=== PATIENT | female | born 1960 | race American Indian/Alaskan Native ===

== ENCOUNTER 2016-10-20 16:08 | Outpatient (CLI) | payer MEDICAID ==
--- NOTE | 2016-10-23 14:19 | Magnetic Resonance Report ---
MRI LUMBAR SPINE WITHOUT CONTRAST HISTORY: Low back pain. TECHNIQUE: axial T1, T2. sagittal T1,T2, STIR. COMPARISON: none. FINDINGS: The conus terminates at L1. No signal abnormality or mass. The cauda equina is within normal limits. Normal height and alignment of the lumbar vertebra. The facet joints are in appropriate relationship. Marrow replacement changes are noted from T11-L4. There is no evidence for fracture, subluxation or suspicious bone lesion. Mild diffuse disc desiccation and narrowing and mild facet arthropathy are noted. The paraspinal soft tissues are unremarkable. L1-2: No significant abnormality. L2-3: No significant abnormality. L3-4: A mild posterior bulging disc is identified. Moderate facet arthropathy and moderate hypertrophy of ligamentum flavum. There is borderline to mild central canal narrowing measuring 9 mm in AP dimension. Right neural foraminal narrowing is estimated at 50-75%. L4-5: A moderate posterior bulging disc is identified. Moderate facet hypertrophy and moderate hypertrophy of ligamentum flavum. This results in mild to moderate central canal stenosis measuring 8 mm in AP dimension. Bilateral neural foraminal narrowing is estimated at 25-50%. L5-S1: The disc space and facet joints appear to be fused. There is no evidence for central canal narrowing or neural foraminal narrowing. IMPRESSION: Lumbar spondylosis as outlined above. L4-5 appears to be the most affected level. No acute process appreciated.
== END 2016-10-20 16:09 | disposition home or self-care (01) ==
LOC: MRI 16:08
PROVIDERS: ATTEND Physical Medicine & Rehabilitation
DX: M51.17 Intervertebral disc disorders with radiculopathy, lumbosacral region (principal)
CPT/HCPCS: 72148

== ENCOUNTER 2017-03-19 17:20 | Emergency (ER) | payer MEDICAID ==
--- NOTE | 2017-03-19 17:48 | Emergency Department Report ---
Stated Complaint: JUDI Time Seen by Provider: 03/19/17 17:42 - HPI History of Present Illness: PT states she has been taking care of her mama and she has not been taking care of herself. PT c/o feeling sick for a week. PT states her heart has been racing for 5 days. - ROS Review of Systems: + cough + hoarse voice + chest pain - Exam Physical Exam: pt alert, dry heaving in triage + cough noted MSE screening note: Focused history and physical exam performed. Due to findings the following was ordered: ekg, labs, xr ED Disposition for MSE Condition: Stable
[2017-03-19] MEDS ORDERED: ZOFRAN ODT PO ONE (17:53)
[2017-03-19 18:24] LABS: Hematocrit 35.5 % (30.3-42.9); Hemoglobin 12.2 gm/dl (10.1-14.3); Mean Corpuscular HGB Conc 34 % (30-34); Mean Corpuscular Hemoglobin 34 pg (28-32); Mean Corpuscular Volume 97 fl (79-97); Platelet Count 109 K/mm3 (140-440); Red Blood Count 3.65 M/mm3 (3.65-5.03); Red Cell Distribution Width 13.6 % (13.2-15.2); White Blood Count 8.5 K/mm3 (4.5-11.0)
[2017-03-19 18:32] LABS: INR 1.06 (0.87-1.13)
[2017-03-19 18:34] LABS: Alanine Aminotransferase 21 units/L (7-56); Albumin 4.2 g/dL (3.9-5); Albumin/Globulin Ratio 1.1 %; Alkaline Phosphatase 72 units/L (35-129); Anion Gap 18 mmol/L; Blood Urea Nitrogen 12 mg/dL (7-17); Calcium 9.4 mg/dL (8.4-10.2); Carbon Dioxide 26 mmol/L (22-30); Chloride 98.1 mmol/L (98-107); Glucose 116 mg/dL (65-100); Potassium 3.9 mmol/L (3.6-5.0); Sodium 138 mmol/L (137-145); Total Protein 7.9 g/dL (6.3-8.2)
[2017-03-19 19:14] LABS: Basophils % (Manual) 0 % (0.0-1.8); Blastocytes % (Manual) 0 %; Diff Status Complete; Eosinophils % (Manual) 0 % (0.0-4.3); Hypochromasia 1+; Ovalocytes Few; Platelet Estimate Consistent w Auto
[2017-03-19] MEDS ORDERED: PROVENTIL IH ONE (23:51)
[2017-03-19] MEDS ORDERED: ATROVENT IH ONE (23:53)
[2017-03-20] MEDS ORDERED: ZOFRAN ONE (00:30)
[2017-03-20] MEDS: ROBITUSSIN AC PO ONE ×2 (00:33→00:57)
[2017-03-20] MEDS ORDERED: ZOFRAN IV ONE (00:37)
--- NOTE | 2017-03-20 02:04 | Emergency Department Report ---
HPI - General Chief Complaint: Dyspnea/Respdistress Time Seen by Provider: 03/19/17 17:42 - HPI HPI: 56-year-old female presents to emergency department by EMS from home with complaint of some shortness of breath, wheezing, mixed dry and productive cough and some palpitations for the past 5-6 days. The past 2 days she has had some generalized chest tightness. She also had one episode of nausea and vomiting today. She received an albuterol treatment in route without much relief. She has a past medical history of hypertension, sciatica, glaucoma and hypothyroidism. She is a tobacco smoker but denies any illicit drug use. She did not take anything for her symptoms prior to presentation. Patient is also having a high level of stress at this point as her mother is currently in the hospital for pneumonia. ED Past Medical Hx - Past Medical History Hx Hypertension: Yes Hx Arthritis: Yes Additional medical history: hypothyroid,BILATERAL GLAUCOMA - Surgical History Past Surgical History?: No - Social History Smoking Status: Current Every Day Smoker Substance Use Type: None - Medications Home Medications: Home Medications Medication Instructions Recorded Confirmed Last Taken Type Hydrochlorothiazide [HCTZ] 12.5 mg PO DAILY 10/06/13 03/19/17 03/19/17 History Levothyroxine [Synthroid] 50 mcg PO DAILY 10/06/13 03/19/17 03/19/17 History Losartan [Cozaar] 25 mg PO DAILY 10/06/13 03/19/17 03/19/17 History Ibuprofen [Motrin 800 MG tab] 800 mg PO Q8HR PRN #60 tablet 02/07/15 03/19/17 Rx Acetaminophen/Codeine [Tylenol #3] 1 tab PO TID #15 tablet 02/19/15 03/19/17 Unknown Rx Baclofen [Lioresal] 10 mg PO TID #15 tab 02/19/15 03/19/17 03/19/17 Rx oxyCODONE /ACETAMINOPHEN [Percocet 1 tab PO Q6HR PRN #20 tablet 11/16/1503/19/17 Rx 5/325] ALBUTEROL Inhaler [ProAir HFA 2 puff IH QID PRN #1 inhalation 03/20/17 Unknown Rx Inhaler] Benzonatate [Tessalon Perles] 100 mg PO Q8HR PRN #20 capsule 03/20/17 Unknown Rx predniSONE [Deltasone] 20 mg PO QDAY #5 tab 03/20/17 Unknown Rx ED Review of Systems ROS: Stated complaint: JUDI Other details as noted in HPI Comment: All other systems reviewed and negative Constitutional: denies: chills, fever Eyes: denies: eye pain, eye discharge, vision change ENT: denies: ear pain, throat pain Respiratory: cough, shortness of breath, wheezing Cardiovascular: chest pain. denies: palpitations Gastrointestinal: nausea, vomiting. denies: abdominal pain Genitourinary: denies: urgency, dysuria, discharge Musculoskeletal: denies: back pain, joint swelling, arthralgia Skin: denies: rash, lesions Neurological: denies: headache, weakness, paresthesias Physical Exam - Physical Exam Vital Signs: Vital Signs 03/19/17 03/19/17 03/19/17 17:45 22:35 22:36 Temperature 98.4 F Pulse Rate 58 L Pulse Rate [ Bilateral Throughout] Respiratory 22 Rate Respiratory Rate [Bilateral Throughout] Blood Pressure 176/83 O2 Sat by Pulse 95 100 100 Oximetry 03/19/17 03/19/17 03/19/17 22:38 22:40 22:42 Temperature Pulse Rate 51 L 57 L 46 L Pulse Rate [ Bilateral Throughout] Respiratory 11 L 12 12 Rate Respiratory Rate [Bilateral Throughout] Blood Pressure 171/83 171/83 O2 Sat by Pulse 100 98 100 Oximetry 03/19/17 03/20/17 22:44 00:59 Temperature Pulse Rate Pulse Rate [ 91 H Bilateral Throughout] Respiratory 18 Rate Respiratory 20 Rate [Bilateral Throughout] Blood Pressure O2 Sat by Pulse 100 Oximetry Physical Exam: GENERAL: The patient is well-developed well-nourished. HENT: Normocephalic. Atraumatic. Patient has moist mucous membranes. EYES: Extraocular motions are intact. Pupils equal reactive to light bilaterally. NECK: Supple. Trachea is midline. CHEST/LUNGS: There is some mild wheezing throughout the chest. A dry sounding cough heard with some coughing fits. There is no tachypnea or accessory muscle use. No respiratory distress. There is some reproducible chest wall discomfort to palpation. HEART/CARDIOVASCULAR: Regular. There is no tachycardia. There is no gallop rub or murmur. ABDOMEN: Abdomen is soft, nontender. Patient has normal bowel sounds. There is no abdominal distention. SKIN: Skin is warm and dry. NEURO: The patient is awake, alert, and oriented. The patient is cooperative. The patient has no focal neurologic deficits. The patient has normal speech and gait. MUSCULOSKELETAL: There is no tenderness or deformity. There is no limitation range of motion. There is no evidence of acute injury. ED Course Vital Signs 03/19/17 03/19/17 03/19/17 17:45 22:35 22:36 Temperature 98.4 F Pulse Rate 58 L Pulse Rate [ Bilateral Throughout] Respiratory 22 Rate Respiratory Rate [Bilateral Throughout] Blood Pressure 176/83 O2 Sat by Pulse 95 100 100 Oximetry 03/19/17 03/19/17 03/19/17 22:38 22:40 22:42 Temperature Pulse Rate 51 L 57 L 46 L Pulse Rate [ Bilateral Throughout] Respiratory 11 L 12 12 Rate Respiratory Rate [Bilateral Throughout] Blood Pressure 171/83 171/83 O2 Sat by Pulse 100 98 100 Oximetry 03/19/17 03/20/17 22:44 00:59 Temperature Pulse Rate Pulse Rate [ 91 H Bilateral Throughout] Respiratory 18 Rate Respiratory 20 Rate [Bilateral Throughout] Blood Pressure O2 Sat by Pulse 100 Oximetry ED Medical Decision Making - Lab Data Result diagrams: 03/19/17 17:53 03/19/17 17:53 - EKG Data -: EKG Interpreted by Me EKG shows normal: sinus rhythm (fusion complexes), axis (borderline left axis deviation), intervals, QRS complexes, ST-T waves (nonspecific ST-T changes) Rate: bradycardia (54 bpm) - EKG Data When compared to previous EKG there are: previous EKG unavailable Interpretation: other (sinus rhythm with fusion complexes, borderline left axis deviation, nonspecific ST-T changes, 54 beats per minute) - Radiology Data Radiology results: image reviewed interpreted by me: Chest x-ray does not show any acute process. There are no pleural effusions, obvious pneumonia and there is no pneumothorax. - Medical Decision Making 56 year old female presents with a few days of some wheezing, shortness of breath, productive cough and more recently some generalized chest tightness. EKG does not show any signs of ST elevation UT. Patient has negative troponins 2 and a negative d-dimer. She was given some steroids, breathing treatment, Robitussin-AC. Patient does show some improvement but not complete resolution. She most likely has some bronchitis by due to her complaint of the chest tightness, the plan was going to be for admission for serial troponins, continue telemetry and either a stress test or cardiac consultation. However the patient is under a high amount of stress as her mother is currently hospitalized and allegedly being discharged tomorrow and she is responsible for taking care of her. For this reason the patient was unable to and unwilling to be admitted to the hospital. Patient understands the risks of leaving including worsening of her pain, respiratory distress, UT, coma, . Despite this the patient feels that she must leave to take care of family and has signed out AGAINST MEDICAL ADVICE. Despite leaving AMA, the patient was given referrals for cardiology, steroids, and antitussive and an albuterol inhaler. She understands she can return at any time if she changes her mind or if any worsening of her symptoms. - Differential Diagnosis UT, PE, costochondritis, bronchitis, pneumonia Critical Care Time: No Critical care attestation.: If time is entered above; I have spent that time in minutes in the direct care of this critically ill patient, excluding procedure time. ED Disposition Clinical Impression: Bronchitis Hypertension Qualifiers: Hypertension type: essential hypertension Qualified Code(s): I10 - Essential ( primary) hypertension Chest pain Qualifiers: Chest pain type: unspecified Qualified Code(s): R07.9 - Chest pain, unspecified Disposition: - LEFT AGAINST MED ADVICE Is pt being admited?: No Condition: Stable Instructions: Chest Pain (ED), Acute Bronchitis (ED), Hypertension (ED) Additional Instructions: Please return to the emergency Department with any worsening of her symptoms, any distress, or if you change your mind about further evaluation and/or admission. Otherwise I have given you a referral for a local architect manager, Dr. Reyes of [facility] to follow up regarding any chest discomfort and a possible outpatient stress test and/or cardiac evaluation. Follow-up with your primary care doctor. Prescriptions: ALBUTEROL Inhaler [ProAir HFA Inhaler] 2 puff IH QID PRN #1 inhalation PRN Reason: Shortness Of Breath Benzonatate [Tessalon Perles] 100 mg PO Q8HR PRN #20 capsule PRN Reason: Cough predniSONE [Deltasone] 20 mg PO QDAY #5 tab Referrals: ELEANOR REYES MD [Staff Physician] - 3-5 Days Forms: AMA Form Time of Disposition: 02:04
[2017-03-20 02:16] VITALS: BP 163/64
--- NOTE | 2017-03-20 08:20 | XRay Report ---
ROUTINE CHEST, TWO VIEWS: HISTORY: chest pain. The trachea, heart, mediastinal contour, lung caldwell and bony thorax are unremarkable. IMPRESSION: No acute cardiopulmonary process identified. No significant change since 11/15/15.
== END 2017-03-20 02:14 | disposition left against medical advice (07) ==
LOC: ED 17:20
DX: J40 Bronchitis, not specified as acute or chronic (principal); I10 Essential (primary) hypertension; M19.90 Unspecified osteoarthritis, unspecified site; E03.9 Hypothyroidism, unspecified; F17.210 Nicotine dependence, cigarettes, uncomplicated
CPT/HCPCS: 36415; 71020; 80053; 84484; 85007; 85025; 85379; 85610; 85730; 93005; 93010; 94644; 96374; 96375; 99284; J2405; J2930; Q0162

== ENCOUNTER 2018-03-15 22:00 | Emergency (ER) | payer MEDICAID ==
[2018-03-15 23:00] VITALS: BP 162/74
== END 2018-03-16 01:35 | disposition left against medical advice (07) ==
LOC: ED 22:00
DX: R21 Rash and other nonspecific skin eruption (principal); Z53.21 Procedure and treatment not carried out due to patient leaving prior to being seen by health care provider

== ENCOUNTER 2019-02-19 10:08 | Outpatient (CLI) | payer MEDICAID ==
--- NOTE | 2019-02-19 13:12 | Magnetic Resonance Report ---
MRI LUMBAR SPINE WITHOUT CONTRAST INDICATION / CLINICAL INFORMATION: Z87.39 HX: OF DISCITIS/M79.652 LEFT THIGH PAIN/R20.0 LEFT LEG NUM. TECHNIQUE: Multisequence, multiplanar images of the lumbar spine were obtained. COMPARISON: The study is compared with the previous MRI of 10/20/2016. FINDINGS: ALIGNMENT: The motion significantly degrades image quality at. However, there is continued a slight r etrolisthesis at L3-L4 with mild disc desiccation. VERTEBRAE:There is diffuse a heterogeneous appearance of the lumbar spine, particularly on the T1-luna ghted imaging which is nonspecific and correlates with the prior study at. No developing focal edemat ous lesions are seen on the STIR sequence at. There are interval chronic endplate changes at L5-S1. VISUALIZED SPINAL CORD: No significant abnormality. [id number] ANALYSIS: L1-2: No significant abnormality. L2-3: No significant abnormality. L3-4: The the head diffuse a disc bulge and facet joint hypertrophy result in mild spinal stenosis. F urthermore, there is a persistent left foraminal disco bulge which appears result in moderate left ne ural foraminal narrowing. Slightly milder narrowing is seen on the right. The above findings correlat e with the previous study. L4-5: The disc bulge and notable facet joint arthropathy result in moderate to marked spinal stenosis with interval progression at. There has also been development of bilateral facet joint effusions, la rger on the right. The right neural foraminal narrowing now a mildly encroaches on the exiting right L4 nerve root sheath at. Milder foraminal narrowing is seen on the left.. L5-S1: This mild residual spondylosis without ossific and developing spinal stenosis at. There is con tinued mild neural foraminal narrowing at. PARASPINAL SOFT TISSUES: No significant abnormality. ADDITIONAL FINDINGS: No epidural collections are identified. IMPRESSION: 1. The study is limited by motion. However, there is moderate to marked spinal stenosis at L4-5. Fabrizio tionally, the right neural from narrowing mildly encroaches on the exiting right L4 nerve root sheath at. 2. There is continued a slight retrolisthesis at L3-L4 with mild spinal stenosis. Additionally, the l eft foraminal disc bulge again results in moderate left neural foraminal narrowing. Signer Name: Jadiel Rowland MD Signed: 02/19/2019 1:07 PM Workstation Name: [id number]
== END 2019-02-19 10:09 | disposition home or self-care (01) ==
LOC: MRI 10:08
PROVIDERS: ATTEND Physical Medicine & Rehabilitation
DX: M47.817 Spondylosis without myelopathy or radiculopathy, lumbosacral region (principal); M48.061 Spinal stenosis, lumbar region without neurogenic claudication; M79.652 Pain in left thigh; R20.0 Anesthesia of skin; I10 Essential (primary) hypertension; Z87.39 Personal history of other diseases of the musculoskeletal system and connective tissue
CPT/HCPCS: 72148

== ENCOUNTER 2020-06-30 14:14 | Outpatient (CLI) | payer MEDICAID ==
--- NOTE | 2020-06-30 15:47 | Ultrasound Report ---
ULTRASOUND-GUIDED CORE NEEDLE BIOPSY Right BREAST WITH CLIP PLACEMENT INDICATION: Right breast mass at the 10:00 position. FINDINGS: Informed consent was obtained. The mass within the right breast at the 10:00 position, 10 cm from the nipple, was identified with ultrasound. The overlying skin was cleansed with chloro prep and local a nesthesia was obtained with a 1% lidocaine solution. Under ultrasound guidance a 14-gauge spring load ed core biopsy needle was advanced to the lesion. A total of 4 core samples were obtained. A U-shaped biopsy marker was placed to valeriy the site of the biopsy. Specimen samples were placed in formalin an d sent to pathology for analysis. Patient tolerated the procedure well and no immediate complications were identified. A post procedure mammogram demonstrates accurate placement of the biopsy marker. IMPRESSION: Technically successful ultrasound-guided core biopsy of right breast mass at the 10:00 position with accurate placement of a U-shaped biopsy marker. An addendum will be added to this report once pathology results are available. Signer Name: Jadiel Waters MD Signed: 06/30/2020 3:42 PM Workstation Name: [id number]
--- NOTE | 2020-06-30 15:56 | Mammography Report ---
RIGHT DIAGNOSTIC MAMMOGRAM INDICATION: Right breast mass at the 10:00 position, status post ultrasound guided core biopsy. COMPARISON: Outside imaging performed 05/24/2020 and 04/09/2020. FINDINGS: Right breast CC and LM projection mammograms were obtained. These document the accurate loc ation of U shaped biopsy marker within a previously noted right breast 10:00 posterior mass. IMPRESSION: Right breast mammograms document accurate location of a U-shaped biopsy marker within a previously no michelle right 10:00 posterior breast mass. BI-RADS Category 4: Suspicious for Malignancy. Signer Name: Jadiel Waters MD Signed: 06/30/2020 3:51 PM Workstation Name: [id number]
== END 2020-06-30 14:15 | disposition home or self-care (01) ==
LOC: SPVWC 14:14
PROVIDERS: ATTEND Surgery
DX: N63.11 Unspecified lump in the right breast, upper outer quadrant (principal); R92.8 Other abnormal and inconclusive findings on diagnostic imaging of breast; N64.89 Other specified disorders of breast; Z17.1 Estrogen receptor negative status [ER-]; I10 Essential (primary) hypertension; M19.90 Unspecified osteoarthritis, unspecified site; Z88.8 Allergy status to other drugs, medicaments and biological substances; Z79.899 Other long term (current) drug therapy; Z87.891 Personal history of nicotine dependence
CPT/HCPCS: 88305

== ENCOUNTER 2020-08-18 10:49 | Outpatient (CLI) | payer MEDICAID ==
--- NOTE | 2020-08-18 13:15 | Magnetic Resonance Report ---
Bilateral breast MR without and with contrast. History: Recently diagnosed right breast cancer, assess extent of disease. Comparison: 06/30/2020. Technique: Multiplanar multisequence MR images of the breast were obtained before and after the intra venous administration of 15 mL of MultiHance contrast agent. Post processing analysis and review was performed on a separate computer workstation. Findings: Breast composition is scattered fibroglandular. There is minimal background parenchymal enhancement w ithin both breasts. RIGHT BREAST: Located within the right breast at the 10:00 posterior position is a 1.2 x 1 x 1 cm irr egular mass. This represents the site of known biopsy-proven malignancy with biopsy marker located ce ntrally within the mass. No evidence of involvement within the overlying skin or underlying pectorali s muscle. No additional abnormal enhancement within the right breast. LEFT BREAST: No enhancing mass, dominant focus, or other abnormal enhancement is identified within th e left breast. No abnormal axillary or internal mammary lymph nodes. Impression: Known biopsy-proven malignancy within the right breast at the 10:00 posterior position. No evidence o f pectoralis or skin involvement. No additional suspicious findings within either breast. BIRADS 6: Known biopsy proven malignancy. A normal MRI does not exclude the presence of some forms of breast malignancy as literature reports s uggest that some forms of ductal carcinoma in situ or lobular carcinoma, particularly, may not be det ected on MRI. The sensitivity and specificity of MRI for cancers under 5 mm may be reduced. MRI does not replace the recommendation for annual conventional mammographic evaluation and should be used as an adjunct to mammography and physical examination as necessary. Signer Name: Jadiel Waters MD Signed: 08/18/2020 1:11 PM Workstation Name: [id number]
== END 2020-08-18 10:50 | disposition home or self-care (01) ==
LOC: SPVIMAG 10:49
PROVIDERS: ATTEND Surgery
DX: C50.411 Malignant neoplasm of upper-outer quadrant of right female breast (principal)
CPT/HCPCS: A9577; C8908; 77049

== ENCOUNTER 2020-09-02 07:34 | Outpatient (CLI) | payer MEDICAID ==
--- NOTE | 2020-09-02 11:37 | PET Report ---
PET/CT HISTORY: BREAST CA C50.411/I10. TECHNIQUE: The patient's fasting blood glucose was 93. The patient weighed 157 lbs. The patient wa s injected with 14.5 mCi of FDG in the left forearm at 0854 hours and imaging was started at 0952 dl rs. The patient was imaged from the skull base to the thighs. All CT scans at this location are perf ormed using CT dose reduction for ALARA by means of automated exposure control. Images were reviewed on a workstation. COMPARISON: No relevant comparison FINDINGS: IMAGED BRAIN: Physiologic FDG uptake. NECK: Physiologic FDG uptake. CHEST WALL: Physiologic FDG uptake. MEDIASTINUM: Physiologic FDG uptake. LUNGS: Physiologic FDG uptake. HEPATOBILIARY: Physiologic FDG uptake. PANCREAS: Physiologic FDG uptake. SPLEEN: Physiologic FDG uptake. KIDNEYS/BLADDER: Physiologic FDG uptake. ADRENAL GLANDS: Physiologic FDG uptake. GI/MESENTERY: Physiologic FDG uptake. PELVIC VISCERA: Physiologic FDG uptake. LYMPH NODES: Physiologic FDG uptake. OSSEOUS STRUCTURES: Physiologic FDG uptake. Left hip prosthesis generates artifact in the pelvis. ADDITIONAL FINDINGS: There is moderate uptake throughout the left axillary vein and visualized proxi mal left brachial vein which appears to be related to radiotracer injection.. IMPRESSION: Negative PET CT Signer Name: Quinn Rogers Jr, MD Signed: 09/02/2020 11:32 AM Workstation Name: [id number]
== END 2020-09-02 07:35 | disposition home or self-care (01) ==
LOC: PET 07:34
PROVIDERS: ATTEND Internal Medicine Hematology
DX: C50.411 Malignant neoplasm of upper-outer quadrant of right female breast (principal); I10 Essential (primary) hypertension; Z96.642 Presence of left artificial hip joint
CPT/HCPCS: 78815; 82962; A9552

== ENCOUNTER 2020-09-22 10:35 | Day surgery (SDC) | payer MEDICAID ==
--- NOTE | 2020-09-17 11:14 | Anesthesia Consultation ---
Anesthesia Consult and Med Hx Date of service: 09/22/20 - Airway Anesthetic Teeth Evaluation: Dentures (Full upper plae and lower partial) ROM Head & Neck: Adequate Mental/Hyoid Distance: Adequate Mallampati Class: Class II Intubation Access Assessment: Probably Good - Pulmonary Exam CTA: Yes - Pre-Operative Health Status ASA Pre-Surgery Classification: ASA3 Proposed Anesthetic Plan: General - Pulmonary Hx Smoking: Yes (Half a pack a day for 20 years. Quit ) Hx Asthma: No Hx Respiratory Symptoms: No SOB: No COPD: No Home Oxygen Therapy: No Hx Sleep Apnea: No - Cardiovascular System Hx Hypertension: Yes Hx Heart Attack/AMI: No Hx Angina: No Hx Pacemaker: No - Central Nervous System Hx Neuromuscular Disorder: No Hx Seizures: No Hx Back Pain: Yes (3 bulging discs) Hx Psychiatric Problems: Yes (Depression;Migraine headaches ) - Gastrointestinal Hx Ulcer: No Hx Gastroesophageal Reflux Disease: No - Endocrine Hx Renal Disease: No Hx Liver Disease: No Hx Insulin Dependent Diabetes: No Hx Non-Insulin Dependent Diabetes: No Hx Thyroid Disease: Yes Hx Hypothyroidism: Yes - Hematic Hx Anemia: Yes - Other Systems Hx Alcohol Use: No Hx Substance Use: Yes (Heroin addict, clean x 11 yrs) Hx Cancer: Yes Hx Obesity: No - Additional Comments Anesthesia Medical History Comments: Denied previous anesthesia complications and requested for anesthesia to start her IV on day of surgery. Second dose of Covid vaccine due on September 21, 2020.
[~2020-09-22 10:35] MED LIST: ACETAMINOPHEN 500 MG TAB PO SCH; BACITRACIN ZINC OINT 28.4 GM TP ONE; BUPIVACAINE/PF (0.25%) 2.5 MG/ML 30 ML VIAL INFILTRATI ONE; GABAPENTIN 300 MG CAP PO NR; LACTATED RINGERS 1,000 ML IV SCH; LIDOCAINE (1%) 10 MG/1 ML VIAL 20 ML MDV INFILTRATI ONE; METHYLENE BLUE 50 MG/10 ML AMP ONE; MIDAZOLAM 2 MG/2 ML INJ IV NR; SCOPOLAMINE TRANSDERMAL PATCH 72 HR TD NR; SODIUM CHLORIDE P/F VIAL 10 ML 10 ML ONE; WATER FOR IRRIG STERILE 1,500 ML BOTTLE IR ONE; ceFAZolin/Water 2 GM/20 ML 2 GM/20 ML SYRINGE IV NR; fentaNYL 100 MCG/2 ML INJ IV PRN
--- NOTE | 2020-09-22 11:23 | Anesthesia Day of Surgery ---
Anesthesia Day of Surgery - Day of Surgery Patient Examined: Yes Patient H&P Reviewed: Yes Patient is NPO: Yes
[2020-09-22] MEDS ORDERED: BUPIVACAINE-EPINEPHRINE/PF 0.5%-1:200,000 (30 ML) VIAL INFILTRATI ONE (11:25)
[2020-09-22] MEDS ORDERED: dexAMETHasone 4 MG/ML VIAL ONE (11:25)
[2020-09-22] MEDS ORDERED: LIDOCAINE (1%) 10 MG/1 ML VIAL 20 ML MDV ONE ×2 (11:25→13:16)
[2020-09-22] MEDS ORDERED: ONDANSETRON 4 MG/2 ML INJ IV PRN (11:30)
[2020-09-22] MEDS ORDERED: BUPIVACAINE/PF (0.25%) 2.5 MG/ML 30 ML VIAL INFILTRATI ONE ×2 (13:16→15:15)
--- NOTE | 2020-09-22 13:19 | Short Stay Summary ---
Short Stay Documentation Date of service: 09/22/20 - History H&P: obtained from office - Allergies and Medications Current Medications: Allergies ketorolac tromethamine [From Toradol] Adverse Reaction (Verified 03/19/17 17:42) Itching tramadol Adverse Reaction (Verified 03/19/17 17:42) Itching Home Medications Medication Instructions Recorded Confirmed Last Taken Type RX: Levothyroxine [Synthroid] 100 mcg PO DAILY 10/06/13 09/17/20 03/19/17 History RX: Losartan [Cozaar] 25 mg PO DAILY 10/06/13 09/17/20 03/19/17 History RX: hydroCHLOROthiazide [HCTZ] 12.5 mg PO DAILY 10/06/13 09/17/20 03/19/17 History oxyCODONE /ACETAMINOPHEN [Percocet 1 tab PO Q6HR PRN #20 tablet 11/16/15 09/17/20 03/19/17 Rx 5/325] fentaNYL [Fentanyl] 1 dose INTRADERMA Q72HR 09/17/20 09/17/20 Unknown History Active Medications Acetaminophen (Acetaminophen 500 Mg Tab) 1,000 mg PO PREOP RAOUL Stop: 09/22/20 23:59 Fentanyl (Fentanyl 100 Mcg/2 Ml Inj) 100 mcg IV ONCE PRN PRN Reason: sedation for nerve block Stop: 09/22/20 23:59 Fentanyl (Fentanyl 100 Mcg/2 Ml Inj) 50 mcg IV ONCE ONE Stop: 09/22/20 13:03 Gabapentin (Gabapentin 300 Mg Cap) 300 mg PO PREOP NR Stop: 09/22/20 23:59 Hydromorphone HCl (Hydromorphone 1 Mg/1 Ml Inj) 0.5 mg IV Q10MIN PRN PRN Reason: Pain , Severe (7-10) Stop: 09/22/20 17:00 Cefazolin Sodium (Ancef/Sterile Water 2 Gm/20 Ml) 2 gm in 20 mls @ 80 mls/hr IV PREOP NR; Protocol Stop: 09/22/20 23:59 Lactated Ringer's (Lactated Ringers) 1,000 mls @ 100 mls/hr IV DIRECT RAOUL Stop: 09/22/20 23:59 Midazolam HCl (Midazolam 2 Mg/2 Ml Inj) 2 mg IV PREOP NR Stop: 09/22/20 23:59 Ondansetron HCl (Ondansetron 4 Mg/2 Ml Inj) 4 mg IV ONCE PRN PRN Reason: Nausea And Vomiting Stop: 09/22/20 17:00 Scopolamine (Scopolamine Transdermal Patch 72 Hr) 1 each TD PREOP NR Stop: 09/26/20 23:59 - Brief post op/procedure progress note Date of procedure: 09/22/20 Pre-op diagnosis: Right breast cancer upper outer quadrant Post-op diagnosis: same Procedure: Right partial mastectomy of upper outer quadrant and SLNB Anesthesia: GETA Findings: Right breast mass with clip present; x3 SLNs Surgeon: SHIRAZ CANO Estimated blood loss: minimal Pathology: list (right partial mastectomy; slns) Specimen disposition: to lab Condition: stable - Disposition Condition at discharge: Good Disposition: DC- TO HOME OR SELFCARE Short Stay Discharge Plan Activity: other (no heavy lifting) Diet: regular Wound: keep clean and dry (wear breast binder; may shower in 48 hours; no baths; do not rub or scrub incision) Follow up with: SHIRAZ CANO MD [Staff Physician] - 7 Days Prescriptions: Ibuprofen [Motrin 800 MG tab] 800 mg PO Q8HR PRN #15 tablet PRN Reason: Pain , Severe (7-10)
[2020-09-22] MEDS ORDERED: ROCURONIUM 50 MG/5 ML INJ IV ONE (13:21)
[2020-09-22] MEDS ORDERED: LIDOCAINE MPF (2%) 20 MG/1 ML VIAL 5 ML ONE (13:21)
[2020-09-22] MEDS ORDERED: HYDROmorphone 1 MG/1 ML INJ ONE (13:22)
[2020-09-22] MEDS ORDERED: propofoL 200 MG/20 ML VIAL IV ONE (13:22)
--- NOTE | 2020-09-22 13:23 | Operative Report ---
Operative Report Operative Report: Operative Report: September 22, 2020 Preoperative diagnosis: Right breast cancer of the upper outer quadrant Postoperative diagnosis: Same Procedure: Right breast partial mastectomy of the upper outer quadrant with SLNB Surgeon: Viannye Velasco MD Careers Counsellor: Evens Ma MD Anesthesia: General Findings: Right breast mass and clip present within radiograph specimen; x3 SLNs Complications: None EBL: Less than 50 cc Disposition: PACU in good condition Indications for operative procedure: This is a 60 year old lady with newly diagnosed right breast cancer of the upper outer quadrant, IDCA grade 3, Stage I-II [id number] triple negatatve (10:00 position 10 cm FN of 9 mm). Recommendations are to proceed with breast conservation. She understands the role of adjuvant radiation therapy and adjuvant chemotherapy. Will also repeat receptors on surgical pathology. She wished to proceed with the above procedure. Procedure in detail: Patient was then taken to the operating room. Gen. anesthesia was administered. The right nipple was injected with radioisotope and 1 cc of methylene blue dye. Right breast and axilla were prepped and draped in the normal sterile operative fashion. Timeout was performed. Gamma probe was inserted into the axilla. The area of hot spot was identified. A right axillary incision was made with a 15 blade knife with dissection taken down to the subcutaneous tissues. The axillary fascia was opened with the Bovie cautery. 3 SLNs were identified and dissected free with blue dye present. All remaining counts were less than 10% of the highest count. Lymph node were sent to pathology for permanent processing. Hemostasis was obtained in the right axillary cavity. Axillary cavity was appropriately irrigated and suctioned. Hemostasis was noted. Axillary fascia was approximated and closed using interrupted 3-0 Vicryl and the skin brought together and closed using a running 4-0 Monocryl followed by skin affix. Attention was then taken towards the right breast. Ultrasound was used to valeriy the area of incision; known breast malignancy at 10:00 position 10 cm FN. An upper outer quadrant breast incision around 10:00 position was made with a 15 blade knife and dissection taken down to subcutaneous tissues. First began raising of the superior flap with dissection taken superiorly past the area of known malignancy and then taken down to the pectoralis muscle, followed by raising of the inferior flap, medial flap and lateral flap with all flaps taken past the area of known malignancy and then posteriorly down to the pectoralis muscle. The breast area of concern was appropriately removed posteriorly from the pectoralis muscle with the aid of the Bovie cautery. Specimen was marked and then sent to pathology and radiology; radiograph specimen with mass and clip present. Breast cavity was irrigated and hemostasis was obtained. Then proceeded with complex closure. The posterior deep breast tissues were then mobilized to approximate and cover pectoralis muscle; close using interrupted 3-0 Vicryl. Deep breast tissues were then approximated and close using interrupted 3-0 Vicryl. The subcutaneous tissues were then approximated and closed using interrupted 3-0 Vicryl followed by closing of the skin with a running 4-0 Monocryl and skin affix. The patient tolerated surgery very well and she was awaken from anesthesia without any complication and transported to PACU in good condition.
[2020-09-22] MEDS ORDERED: fentaNYL 100 MCG/2 ML INJ IV SCH (13:30)
[2020-09-22] MEDS ORDERED: SODIUM CHLORIDE 0.9% P/F 10 ML VIAL INFILTRATI ONE (13:47)
[2020-09-22] MEDS ORDERED: METHYLENE BLUE 50 MG/10 ML AMP IRRIGATION ONE (13:47)
[2020-09-22] MEDS ORDERED: KETAMINE/STERILE WATER 50 MG/ML SYRINGE ONE (13:58)
[2020-09-22] MEDS ORDERED: ONDANSETRON 4 MG/2 ML INJ ONE (14:11)
[2020-09-22] MEDS ORDERED: dexAMETHasone 20 MG/5 ML VIAL ONE (14:11)
[2020-09-22] MEDS ORDERED: LACTATED RINGERS 1,000 ML ONE (14:44)
[2020-09-22] MEDS ORDERED: WATER FOR IRRIG STERILE 1,500 ML BOTTLE IR ONE (14:59)
[2020-09-22] MEDS ORDERED: LIDOCAINE (1%) 10 MG/1 ML VIAL 20 ML MDV INFILTRATI ONE (15:15)
[2020-09-22] MEDS ORDERED: GLYCOPYRROLATE 0.4 MG/2 ML INJ ONE (15:17)
[2020-09-22] MEDS ORDERED: NEOSTIGMINE 10MG/10 ML INJ MDV ONE (15:17)
--- NOTE | 2020-09-22 15:52 | Mammography Report ---
Right breast surgical specimen. INDICATION: Right breast malignancy. COMPARISON: 06/30/2020 FINDINGS/IMPRESSION: Single surgical specimen of the right breast demonstrates U-shaped biopsy marker and associated mass located centrally within the specimen. Signer Name: Jadiel Waters MD Signed: 09/22/2020 3:47 PM Workstation Name: [id number]
[2020-09-22] MEDS: HYDROmorphone 1 MG/1 ML INJ IV PRN ×4 (16:03→16:32)
[2020-09-22] MEDS ORDERED: MIDAZOLAM 2 MG/2 ML INJ IV PRN (16:30)
[2020-09-22] MEDS ORDERED: oxyCODONE /ACETAMINOPHEN 5-325MG TAB PO NR (16:37)
[2020-09-22] MEDS ORDERED: oxyCODONE /ACETAMINOPHEN 5-325MG TAB PO ONE (16:38)
--- NOTE | 2020-09-22 17:14 | Post Anesthesia Evaluation ---
- Post Anesthesia Evaluation Patient Participated: Yes Airway Patent: Yes Stable Respiratory Function: Yes Nausea/Vomiting: No Temp > 96.8F: Yes Pain Manageable: Yes Adequeate Hydration: Yes Anesthesia Complications: No Block Receding Appropriately: Not Applicable
[2020-09-22 18:02] VITALS: BP 148/82
== END 2020-09-22 17:30 | disposition home or self-care (01) ==
LOC: OR 10:35
PROVIDERS: ATTEND Surgery
DX: C50.411 Malignant neoplasm of upper-outer quadrant of right female breast (principal); I89.8 Other specified noninfective disorders of lymphatic vessels and lymph nodes; Z20.822 Contact with and (suspected) exposure to COVID-19; H40.9 Unspecified glaucoma; I10 Essential (primary) hypertension; M19.90 Unspecified osteoarthritis, unspecified site; E03.9 Hypothyroidism, unspecified; F32.9 Major depressive disorder, single episode, unspecified; Z79.899 Other long term (current) drug therapy; Z88.8 Allergy status to other drugs, medicaments and biological substances; Z87.891 Personal history of nicotine dependence; Z96.642 Presence of left artificial hip joint; Z98.890 Other specified postprocedural states
CPT/HCPCS: 19301; 38525; 38792; 76098; 78800; 88307; 88341; 88342; A9541; J0690; J1100; J1170; J2250; J2405; J2704; J2710; J3010; J3490; J7120; Q9968; U0003; 88333

== ENCOUNTER 2020-10-22 07:53 | Day surgery (SDC) | payer MEDICAID ==
--- NOTE | 2020-10-22 07:50 | Anesthesia Day of Surgery ---
Anesthesia Day of Surgery - Day of Surgery Patient Examined: Yes Patient H&P Reviewed: Yes Patient is NPO: Yes
--- NOTE | 2020-10-22 07:52 | Anesthesia Consultation ---
Anesthesia Consult and Med Hx Date of service: 10/22/20 - Airway Anesthetic Teeth Evaluation: Poor, Chipped ROM Head & Neck: Adequate Mental/Hyoid Distance: Adequate Mallampati Class: Class III Intubation Access Assessment: Probably Good - Pre-Operative Health Status ASA Pre-Surgery Classification: ASA3 Proposed Anesthetic Plan: General (Inhalational induction) - Pulmonary Hx Smoking: Yes (Half a pack a day for 20 years. Quit ) Hx Respiratory Symptoms: No - Cardiovascular System Hx Hypertension: Yes - Central Nervous System Hx Neuromuscular Disorder: No Hx Back Pain: Yes (3 bulging discs) Hx Psychiatric Problems: Yes - Gastrointestinal Hx Gastroesophageal Reflux Disease: No - Endocrine Hx Insulin Dependent Diabetes: No Hx Non-Insulin Dependent Diabetes: No Hx Thyroid Disease: Yes Hx Hypothyroidism: Yes - Hematic Hx Anemia: Yes Hx Sickle Cell Disease: No - Other Systems Hx Substance Use: Yes (Heroin addict, clean x 11 yrs) Hx Cancer: Yes - Additional Comments Anesthesia Medical History Comments: Here [id number]. Poor venous access and has extremely low pain threshold. Attempted IV and will do inhalational induction in the OR
[~2020-10-22 07:53] MED LIST changes: -ACETAMINOPHEN 500 MG TAB PO SCH; -BACITRACIN ZINC OINT 28.4 GM TP ONE; +BACTERIOSTATIC SODIUM CHLORIDE 0.9% 30 ML VIAL INFILTRATI ONE; -GABAPENTIN 300 MG CAP PO NR; +HEPARIN 10,000 UNITS/10 ML VIAL ONE; +KETAMINE/STERILE WATER 50 MG/ML SYRINGE ONE; -LACTATED RINGERS 1,000 ML IV SCH; +LACTATED RINGERS 1,000 ML ONE; -LIDOCAINE (1%) 10 MG/1 ML VIAL 20 ML MDV INFILTRATI ONE; +LIDOCAINE (1%) 10 MG/1 ML VIAL 20 ML MDV ONE; +LIDOCAINE MPF (2%) 20 MG/1 ML VIAL 5 ML ONE; -METHYLENE BLUE 50 MG/10 ML AMP ONE; -MIDAZOLAM 2 MG/2 ML INJ IV NR; +ONDANSETRON 4 MG/2 ML INJ ONE; -SCOPOLAMINE TRANSDERMAL PATCH 72 HR TD NR; +SODIUM CHLORIDE 0.9% 100 ML ONE; -SODIUM CHLORIDE P/F VIAL 10 ML 10 ML ONE; -WATER FOR IRRIG STERILE 1,500 ML BOTTLE IR ONE; -ceFAZolin/Water 2 GM/20 ML 2 GM/20 ML SYRINGE IV NR; +dexAMETHasone 20 MG/5 ML VIAL ONE; -fentaNYL 100 MCG/2 ML INJ IV PRN; +fentaNYL 100 MCG/2 ML INJ ONE; +propofoL 200 MG/20 ML VIAL IV ONE
[2020-10-22] MEDS ORDERED: ceFAZolin/STERILE WATER 2 GM/20 ML SYRINGE IV NR (08:00)
[2020-10-22] MEDS ORDERED: LACTATED RINGERS 1,000 ML IV SCH (08:00)
[2020-10-22] MEDS ORDERED: HEPARIN 10,000 UNITS/10 ML VIAL IR ONE (09:35)
[2020-10-22] MEDS ORDERED: SODIUM CHLORIDE 0.9% 100 ML IVPB IV ONE (09:36)
[2020-10-22] MEDS ORDERED: BUPIVACAINE/PF (0.25%) 2.5 MG/ML 30 ML VIAL INFILTRATI ONE (09:37)
[2020-10-22] MEDS ORDERED: LIDOCAINE (1%) 10 MG/1 ML VIAL 20 ML MDV INFILTRATI ONE (09:37)
[2020-10-22] MEDS ORDERED: SODIUM CHLORIDE 0.9% IRR 1,500 ML BOTTLE IR ONE (09:39)
--- NOTE | 2020-10-22 10:26 | Short Stay Summary ---
Short Stay Documentation Date of service: 10/22/20 - History Principal diagnosis: right breast cancer H&P: obtained from office - Allergies and Medications Current Medications: Allergies ketorolac tromethamine [From Toradol] Adverse Reaction (Verified 10/22/20 08:55) Itching tramadol Adverse Reaction (Verified 10/22/20 08:55) Itching Home Medications Medication Instructions Recorded Confirmed Last Taken Type Levothyroxine [Synthroid] 100 mcg PO DAILY 10/06/13 10/22/20 10/22/20 05:00 History Losartan [Cozaar] 25 mg PO DAILY 10/06/13 10/22/20 10/21/20 08:00 History hydroCHLOROthiazide [HCTZ] 12.5 mg PO DAILY 10/06/13 10/22/20 10/21/20 08:00 History oxyCODONE /ACETAMINOPHEN [Percocet 1 tab PO Q6HR PRN #20 tablet 11/16/15 10/22/20 10/21/20 08:00 Rx 5/325] fentaNYL [Fentanyl] 1 dose INTRADERMA Q72HR 09/17/20 10/22/20 10/19/20 08:00 History Ibuprofen [Motrin 800 MG tab] 800 mg PO Q8HR PRN #15 tablet 09/22/20 10/22/20 10/19/20 08:00 Rx Active Medications Cefazolin Sodium (Cefazolin/Sterile Water 2 Gm/20 Ml Syringe) 2 gm IV PREOP NR Stop: 10/22/20 20:00 Lactated Ringer's (Lactated Ringers) 1,000 mls @ 100 mls/hr IV DIRECT RAOUL - Brief post op/procedure progress note Date of procedure: 10/22/20 Pre-op diagnosis: right breast cancer Post-op diagnosis: same Procedure: Left internal jugular port a cath placement with bedside ultrasound guidance Anesthesia: GETA, local Findings: Good placement of port without PTX on post op CXR Surgeon: KINA LUCIO Estimated blood loss: minimal Pathology: none Condition: stable - Hospital course Hospital course: Pt observed in PACU and discharged to home in stable condition when criteria met - Disposition Condition at discharge: Good Disposition: DC-01 TO HOME OR SELFCARE Short Stay Discharge Plan Activity: no restrictions Diet: regular Wound: open to air (May shower tomorrow, pat incisions dry and do not scrub glue) Follow up with: PRIMARY CARE, [Primary Care Provider] - 7 Days KINA LUCIO DO [Staff Physician] - 14 Days
[2020-10-22] MEDS ORDERED: MIDAZOLAM 2 MG/2 ML INJ ONE (10:33)
[2020-10-22] MEDS ORDERED: MIDAZOLAM 2 MG/2 ML INJ IV ONE (10:36)
--- NOTE | 2020-10-22 10:41 | Operative Report ---
Operative Report Operative Report: Date of procedure: 10/22/20 Pre-op diagnosis: right breast cancer Post-op diagnosis: same Procedure: Left internal jugular port a cath placement with bedside ultrasound guidance Anesthesia: GETA, local Findings: Good placement of port without PTX on post op CXR Surgeon: KINA LUCIO Estimated blood loss: minimal Pathology: none Condition: stable Hospital course: Pt observed in PACU and discharged to home in stable condition when criteria met HPI and indication: Patient is a 60-year-old female with a diagnosis of right- sided breast cancer. The patient is seen by Dr. Baez and deemed a candidate for chemotherapy. The indication for along with the procedure of port placement was discussed with the patient. All of the risks associated with the procedure were discussed with the patient including but not limited to pneumothorax, infection, bleeding, malpositioned port, injury to other structures. The patient understands and all questions were answered. Consent was obtained in the office. Procedure in detail: The patient was identified in the preoperative area, taken back to operating room, placed on operating table in supine position. After anesthesia was induced both arms were tucked and upper chest and neck were prepped and draped in usual sterile fashion. A timeout was performed. The was placed in Trendelenburg position. Local anesthetic was infiltrated into the skin at the intended puncture site. The left subclavian vein and internal jugular vein were identified using bedside ultrasound. The left internal jugular vein was accessed on the first stick. There was return of dark red, nonpulsatile blood. The standard wire in the kit could not be guided into the appropriate position and therefore a Glidewire was used. The glide wire was threaded through the needle under fluoroscopy without resistance and positioning confirmed. The needle was then removed. Local anesthetic was infiltrated to the skin of the left upper chest. Using a 15 blade, an incision was made in the left upper chest and dissection carried down through the skin and subcutaneous tissue using Bovie electrocautery. Hemostasis was achieved along the way. A pocket for the port was then created bluntly and with electrocautery. The catheter was flushed and tunneled from the pocket to the wire. A breakaway catheter/dilator sheath then inserted over the wire under fluoroscopy, and the wire and dilator removed. The catheter was then inserted through the breakaway catheter which was then removed. The catheter sat flush under the skin. Using continuous fluoroscopy, the catheter was pulled back until the tip was visualized in the right atrium. There was no ectopy on the anesthesia monitor. The catheter was then cut to size and the port attached in the usual fashion. The port was then sutured into place to the pre-pectoral fascia using 2-0 Vicryl interrupted sutures. The wound was irrigated and hemostasis ensured. The port was tested with heparinized saline and there was return of blood and it flushed easily. The port was then instilled with 3000 units of undiluted heparin. The deep dermal layer was then closed with interrupted 3-0 Vicryl stitches. The skin incisions were closed with 4-0 [place] cryl subcuticular stitches and skin glue. Intraoperative chest x-ray did show good positioning of the port, without evidence of pneumothorax At the end of the case, all sponge, instrument, sharp counts were correct 2. The patient was awoken from anesthesia and taken to PACU in stable condition.
--- NOTE | 2020-10-22 11:02 | Post Anesthesia Evaluation ---
- Post Anesthesia Evaluation Patient Participated: Yes Airway Patent: Yes Stable Respiratory Function: Yes Nausea/Vomiting: No Temp > 96.8F: Yes Pain Manageable: Yes Adequeate Hydration: Yes Anesthesia Complications: No Block Receding Appropriately: Not Applicable Patient on Ventilator: No
[2020-10-22] MEDS ORDERED: oxyCODONE /ACETAMINOPHEN 5-325MG TAB ONE (11:06)
[2020-10-22] MEDS ORDERED: oxyCODONE /ACETAMINOPHEN 5-325MG TAB PO ONE (11:10)
[2020-10-22 12:58] VITALS: BP 148/78
--- NOTE | 2020-10-22 13:08 | Fluoroscopy Report ---
INTRAOPERATIVE FLUOROSCOPY: CENTRAL VENOUS LINE PLACEMENT INDICATION / CLINICAL INFORMATION: PORT PLACEMENT UNDER FLUORO. TECHNIQUE: Intraoperative spot images were obtained during the procedure. FINDINGS: Images show port placement. See operative/procedure note by performing physician for full details. Fluoroscopy Time: 1 minute and one second. Fluoroscopy Images: 2. Signer Name: Ace Garcia MD Signed: 10/22/2020 1:03 PM Workstation Name: [id number]
== END 2020-10-22 07:54 | disposition home or self-care (01) ==
LOC: OR 07:53
PROVIDERS: ATTEND Surgery
DX: C50.911 Malignant neoplasm of unspecified site of right female breast (principal); Z20.822 Contact with and (suspected) exposure to COVID-19; H40.9 Unspecified glaucoma; M19.90 Unspecified osteoarthritis, unspecified site; E03.9 Hypothyroidism, unspecified; F32.9 Major depressive disorder, single episode, unspecified; Z79.899 Other long term (current) drug therapy; Z88.8 Allergy status to other drugs, medicaments and biological substances; Z87.891 Personal history of nicotine dependence; Z90.11 Acquired absence of right breast and nipple; Z98.890 Other specified postprocedural states; Z96.642 Presence of left artificial hip joint
CPT/HCPCS: 36561; 77001; C1769; C1788; J0690; J1100; J1644; J2250; J2405; J2704; J3010; J7120; U0003; J3490

== ENCOUNTER 2020-12-29 11:20 | Outpatient (CLI) | payer MEDICAID ==
--- NOTE | 2020-12-29 12:01 | XRay Report ---
CHEST 2 VIEWS INDICATION: MALIGNANT NEOPLASM OF UPPER-OUTER QUADRANT OF RIGHT FEMALE BREAST. Patient believes supp ort may be flipped. COMPARISON: 10/22/2020 FINDINGS: Support devices: The port of the left Litkyd-j-Lewu does appear to be flipped 180 degrees when compar ing to the previous exam. The distal tip of the Mflpzn-[id number]-[id number] terminates in the superior right atrium . Heart: Within normal limits. Lungs/pleura: Bilateral lung opacities or congestive changes have resolved since the previous exam. No acute infiltrate, pleural fluid or pneumothorax. Additional findings: None. IMPRESSION: The port does appear to be flipped since 10/22/2020. No acute process in the chest. Bilateral lung opac ities or congestive changes have resolved since the previous exam. Signer Name: Quinn Rogers Jr, MD Signed: 12/29/2020 11:57 AM Workstation Name: [id number]
== END 2020-12-29 11:21 | disposition home or self-care (01) ==
LOC: XRAY 11:20
PROVIDERS: ATTEND Surgery
DX: C50.411 Malignant neoplasm of upper-outer quadrant of right female breast (principal)
CPT/HCPCS: 71046

== ENCOUNTER 2021-01-04 07:41 | Day surgery (SDC) | payer MEDICAID ==
[~2021-01-04 07:41] MED LIST changes: -BACTERIOSTATIC SODIUM CHLORIDE 0.9% 30 ML VIAL INFILTRATI ONE; -BUPIVACAINE/PF (0.25%) 2.5 MG/ML 30 ML VIAL INFILTRATI ONE; -HEPARIN 10,000 UNITS/10 ML VIAL ONE; -KETAMINE/STERILE WATER 50 MG/ML SYRINGE ONE; +LACTATED RINGERS 1,000 ML IV SCH; -LACTATED RINGERS 1,000 ML ONE; -LIDOCAINE (1%) 10 MG/1 ML VIAL 20 ML MDV ONE; -LIDOCAINE MPF (2%) 20 MG/1 ML VIAL 5 ML ONE; +MIDAZOLAM 10 MG/5 ML ORAL LIQD PO NR; +MIDAZOLAM 2 MG/2 ML INJ IV NR; -ONDANSETRON 4 MG/2 ML INJ ONE; -SODIUM CHLORIDE 0.9% 100 ML ONE; +ceFAZolin/STERILE WATER 2 GM/20 ML SYRINGE IV NR; -dexAMETHasone 20 MG/5 ML VIAL ONE; -fentaNYL 100 MCG/2 ML INJ ONE; -propofoL 200 MG/20 ML VIAL IV ONE
[2021-01-04] MEDS ORDERED: ACETAMINOPHEN 500 MG TAB PO SCH (08:25)
[2021-01-04] MEDS ORDERED: HYDROmorphone 1 MG/1 ML INJ IV PRN (09:29)
[2021-01-04] MEDS ORDERED: ONDANSETRON 4 MG/2 ML INJ IV PRN (09:29)
--- NOTE | 2021-01-04 09:29 | Anesthesia Consultation ---
Anesthesia Consult and Med Hx Date of service: 01/04/21 - Airway Anesthetic Teeth Evaluation: Partials ROM Head & Neck: Adequate Mental/Hyoid Distance: Adequate Mallampati Class: Class III Intubation Access Assessment: Possibly Difficult - Pre-Operative Health Status ASA Pre-Surgery Classification: ASA3 Proposed Anesthetic Plan: General - Pre-Anesthesia Comment Pre-Anesthesia Comments: hx difficult IV placement; previous inhlational induction prior to IV placement - Pulmonary Hx Smoking: Yes (former smoker quit 06/2020) SOB: Yes (chronic, stable) Hx Sleep Apnea: No (EVELYN PRE SCREEN HIGH RISK) - Cardiovascular System Hx Hypertension: Yes Hx Heart Attack/AMI: No Hx Percutaneous Transluminal Coronary Angioplasty (PTCA): No - Central Nervous System CVA: No Hx Back Pain: Yes (3 bulging discs- CHRONIC PAIN- WITH VIVIANE LEG PAIN; off fentanyl TD) Hx Psychiatric Problems: Yes (anxiety) - Endocrine Hx Renal Disease: No Hx Liver Disease: No Hx Insulin Dependent Diabetes: No Hx Non-Insulin Dependent Diabetes: No Hx Hypothyroidism: Yes - Hematic Hx Anemia: Yes - Other Systems Hx Substance Use: Yes (remote hx heroin use) Hx Cancer: Yes (right breast ca s/p resection, lymph node bx) Hx Obesity: Yes (BMI 31) - Additional Comments Anesthesia Medical History Comments: No hx anesthetic complications.
--- NOTE | 2021-01-04 09:29 | Anesthesia Day of Surgery ---
Anesthesia Day of Surgery - Day of Surgery Patient Examined: Yes Patient H&P Reviewed: Yes Patient is NPO: Yes
[2021-01-04] MEDS ORDERED: oxyCODONE /ACETAMINOPHEN 5-325MG TAB PO PRN (10:00)
[2021-01-04] MEDS ORDERED: fentaNYL 100 MCG/2 ML INJ ONE (10:22)
[2021-01-04] MEDS ORDERED: LIDOCAINE MPF (2%) 20 MG/1 ML VIAL 5 ML ONE (10:22)
[2021-01-04] MEDS ORDERED: propofoL 200 MG/20 ML VIAL IV ONE (10:23)
[2021-01-04] MEDS ORDERED: LIDOCAINE (1%) 10 MG/1 ML VIAL 20 ML MDV ONE (10:30)
[2021-01-04] MEDS ORDERED: BUPIVACAINE/PF (0.5%) 5 MG/1 ML 30 ML VIAL INFILTRATI ONE ×2 (10:30→11:32)
[2021-01-04] MEDS ORDERED: HEPARIN 5,000 UNIT/1 ML VIAL ONE ×2 (10:51→11:29)
[2021-01-04] MEDS ORDERED: SODIUM CHLORIDE 0.9% 0 ML ONE (10:51)
[2021-01-04] MEDS ORDERED: KETAMINE/STERILE WATER 50 MG/ML SYRINGE ONE (11:26)
[2021-01-04] MEDS ORDERED: LIDOCAINE (1%) 10 MG/1 ML VIAL 20 ML MDV INFILTRATI ONE (11:32)
[2021-01-04] MEDS ORDERED: HEPARIN 10,000 UNITS/10 ML VIAL VEN-SHEATH ONE (11:32)
[2021-01-04] MEDS ORDERED: HEPARIN 10,000 UNITS/10 ML VIAL ONE (11:33)
--- NOTE | 2021-01-04 11:58 | Short Stay Summary ---
Short Stay Documentation Date of service: 01/04/21 - History Principal diagnosis: malfunctioning port H&P: obtained from office - Allergies and Medications Current Medications: Allergies ketorolac tromethamine [From Toradol] Adverse Reaction (Verified 10/22/20 08:55) Itching tramadol Adverse Reaction (Verified 10/22/20 08:55) Itching Home Medications Medication Instructions Recorded Confirmed Last Taken Type Levothyroxine [Synthroid] 100 mcg PO DAILY 10/06/13 01/03/21 01/04/21 07:15 History Losartan [Cozaar] 25 mg PO DAILY 10/06/13 01/03/21 01/04/21 07:15 History hydroCHLOROthiazide [HCTZ] 12.5 mg PO DAILY 10/06/13 01/03/21 01/04/21 07:15 History oxyCODONE /ACETAMINOPHEN [Percocet 1 tab PO Q6HR PRN #20 tablet 11/16/15 01/03/21 12/30/20 Rx 5/325 mg] Ibuprofen [Motrin 800 MG tab] 800 mg PO Q8HR PRN 01/03/21 01/03/21 12/30/20 History Active Medications Acetaminophen (Acetaminophen 500 Mg Tab) 1,000 mg PO PREOP RAOUL Stop: 01/04/21 16:00 Last Admin: 01/04/21 08:38 Dose: 1,000 mg Documented by: Cefazolin Sodium (Cefazolin/Sterile Water 2 Gm/20 Ml Syringe) 2 gm IV PREOP NR Stop: 01/04/21 20:00 Hydromorphone HCl (Hydromorphone 1 Mg/1 Ml Inj) 0.5 mg IV Q10MIN PRN PRN Reason: Pain , Severe (7-10) Stop: 01/04/21 23:00 Midazolam HCl (Midazolam 10 Mg/5 Ml Oral Liqd) 10 mg PO PREOP NR Stop: 01/04/21 20:00 Last Admin: 01/04/21 09:11 Dose: 10 mg Documented by: Ondansetron HCl (Ondansetron 4 Mg/2 Ml Inj) 4 mg IV ONCE PRN PRN Reason: Nausea And Vomiting Stop: 01/04/21 20:00 Oxycodone/Acetaminophen (Oxycodone /Acetaminophen 5-325mg Tab) 1 tab PO ONCE PRN PRN Reason: Pain, Moderate (4-6) Stop: 01/04/21 20:00 - Brief post op/procedure progress note Date of procedure: 01/04/21 Pre-op diagnosis: malfunctioning port Post-op diagnosis: same Procedure: Port-a-cath revision Anesthesia: local, other (LMA) Findings: Port in correct position with large pocket allowing port to flip spontaneously. Port tested and flushed easily and dark red blood aspirated Surgeon: KINA LUCIO Estimated blood loss: minimal Pathology: none Condition: stable - Hospital course Hospital course: Pt observed in PACU and discharged to home in stable condition when criteria met - Disposition Condition at discharge: Good Disposition: DC-01 TO HOME OR SELFCARE Short Stay Discharge Plan Activity: no restrictions Diet: regular Wound: open to air (May shower tomorrow - pat area of incision dry, do not scrub. Glue will fall off on its own) Follow up with: ORAL VERDUGO MD [Primary Care Provider] - 7 Days OLIVIA SEGURA MD [Staff Physician] - 3 Days
[2021-01-04] MEDS ORDERED: ONDANSETRON 4 MG/2 ML INJ ONE (12:05)
[2021-01-04 12:53] VITALS: BP 128/71
--- NOTE | 2021-01-04 14:41 | Post Anesthesia Evaluation ---
- Post Anesthesia Evaluation Patient Participated: Yes Airway Patent: Yes Stable Respiratory Function: Yes Nausea/Vomiting: No Temp > 96.8F: Yes Pain Manageable: Yes Adequeate Hydration: Yes Anesthesia Complications: No
--- NOTE | 2021-01-04 19:27 | Operative Report ---
Operative Report Operative Report: Date of procedure: 01/04/21 Pre-op diagnosis: malfunctioning port Post-op diagnosis: same Procedure: Port-a-cath revision Anesthesia: local, other (LMA) Findings: Port in correct position with large pocket allowing port to flip spontaneously. Port tested and flushed easily and dark red blood aspirated Surgeon: KINA LUCIO Estimated blood loss: minimal Pathology: none Condition: stable Hospital course: Pt observed in PACU and discharged to home in stable condition when criteria met HPI and indication: 60 yo F with hx of breast cancer, currently on chemotherapy. Patient was evaluated by Dr. Baez's office and noted that port was flipped. She was seen in surgery clinic last week and port was manually adjusted and flipped. When she returned home, it happened again. Therefore, it was recommended that the patient undergo revision of the subcutaneous port. CXR preop showed port catheter in good position. All risks, benefits, alternatives to surgery discussed with patient and consent obtained. Questions answered. Procedure in detail: Patient identified in preoperative area, and taken back to OR and placed on OR table in supine position. After anesthesia was induced the left upper chest was prepped and draped in sterile fashion. Time out performed. Local anesthetic was infiltrated into the skin at the intended incision site. An incision was made through the old scar using a 10 blade. Dissection was carried out through the subcutaneous tissue using hemostat. The subcutaneous port was identified. This was sutured down to the capsule in 3 locations using 2-0 prolene sutures. The port was tested by accessing with a jane needle. Dark red blood was aspirated easily and then port flushed with 3000 Units of heparin. The subcutaneous tissue was then irrigated and hemostasis ensured. The deep dermal layer was closed using 3-0 vicryl interrupted stitches. The skin was closed with 4-0 monocryl subcuticular stitches and skin glue The patient tolerated the procedure well. All sharps, instrument, sponge counts were correct x2 at the end of the case. The patient was awoken from anesthesia and taken to PACU in stable condition. Family updated.
== END 2021-01-04 07:42 | disposition home or self-care (01) ==
LOC: OR 07:41
PROVIDERS: ATTEND Surgery
DX: T82.524A Displacement of infusion catheter, initial encounter (principal); T82.594A Other mechanical complication of infusion catheter, initial encounter; H40.9 Unspecified glaucoma; G43.909 Migraine, unspecified, not intractable, without status migrainosus; E66.9 Obesity, unspecified; M19.90 Unspecified osteoarthritis, unspecified site; E03.9 Hypothyroidism, unspecified; F32.9 Major depressive disorder, single episode, unspecified; Z98.890 Other specified postprocedural states; Z79.899 Other long term (current) drug therapy; Z88.8 Allergy status to other drugs, medicaments and biological substances; Z87.891 Personal history of nicotine dependence; Z85.3 Personal history of malignant neoplasm of breast; Z90.11 Acquired absence of right breast and nipple; Z96.642 Presence of left artificial hip joint; Y82.8 Other medical devices associated with adverse incidents; Y92.89 Other specified places as the place of occurrence of the external cause; I10 Essential (primary) hypertension
CPT/HCPCS: 36582; J0690; J1644; J2405; J3490; J2704; J3010

== ENCOUNTER 2021-03-22 19:02 | Emergency (ER) | payer MEDICAID ==
[2021-03-22 20:22] VITALS: BP 128/72
--- NOTE | 2021-03-22 20:54 | Emergency Department Report ---
ED Extremity Problem HPI - General Chief complaint: Skin/Abscess/Foreign Body Stated complaint: RT ARM HAS BLACK AND BLUE KEV Time Seen by Provider: 03/22/21 20:52 Source: patient Mode of arrival: Ambulatory Limitations: No Limitations - History of Present Illness Initial comments: 60-year-old female with a past medical history of breast cancer, currently undergoing radiation treatment, status post lumpectomy, lymph node removal, also with a past history of hypertension and thyroid disease presents to the ER today with complaints of swelling and bruising to her right forearm. Patient states that she accidentally fell about 7 days ago. She states that at the time she landed on her buttocks but she does not recall hitting her arm on anything. She states later on that night she noticed that there was bruising to her right forearm and there was a small area that resembled what appeared to be an insect bite. She states that the bruising was getting worse, and she followed up with her primary care doctor who started her on Keflex for possible infection. She states that she completed the Keflex 3 days ago. She states that there has been improvement in the bruising, but was concerning is that now there is an isolated area that looks like it is ready to "pop". She states that she went in for radiation treatment today injury to her oncologist, who then called her primary care doctor and they both recommended that she come to the ER. She reports some discomfort to the area but no significant pain. She states that the area was never really very painful. She has no pain with movement of her hands wrists or elbows. She denies any fever at home. She reports no numbness, tingling or weakness. She is not currently on any blood thinners. Patient states that she did try to stick the area with a small needle and noticed blood draining from the area. MD Complaint: extremity swelling -: Gradual, days(s) (7) - Related Data Home Medications Medication Instructions Recorded Confirmed Last Taken Levothyroxine [Synthroid] 100 mcg PO DAILY 10/06/13 01/03/21 01/04/21 07:15 Losartan [Cozaar] 25 mg PO DAILY 10/06/13 01/03/21 01/04/21 07:15 hydroCHLOROthiazide [HCTZ] 12.5 mg PO DAILY 10/06/13 01/03/21 01/04/21 07:15 Ibuprofen [Motrin 800 MG tab] 800 mg PO Q8HR PRN 01/03/21 01/03/21 12/30/20 Previous Rx's Medication Instructions Recorded Last Taken Type oxyCODONE /ACETAMINOPHEN [Percocet 1 tab PO Q6HR PRN #10 tablet 01/04/21 Unknown Rx 5/325 mg] cephALEXin [Keflex] 500 mg PO Q8HR #21 cap 03/22/21 Unknown Rx Allergies Allergy/AdvReac Type Severity Reaction Status Date / Time ketorolac tromethamine AdvReac Itching Verified 03/22/21 20:19 [From Toradol] tramadol AdvReac Itching Verified 03/22/21 20:19 ED Review of Systems ROS: Stated complaint: RT ARM HAS BLACK AND BLUE KEV Other details as noted in HPI ED Past Medical Hx - Past Medical History Hx Hypertension: Yes Hx Heart Attack/AMI: No Hx Liver Disease: No Hx Renal Disease: No Hx of Cancer: Yes (breast cancer) Hx Sickle Cell Disease: No Hx Arthritis: Yes (LEFT HIP) Hx Headaches / Migraines: Yes (Migraines) Additional medical history: hypothyroid,BILATERAL GLAUCOMA - Social History Smoking Status: Former Smoker - Medications Home Medications: Home Medications Medication Instructions Recorded Confirmed Last Taken Type Levothyroxine [Synthroid] 100 mcg PO DAILY 10/06/13 01/03/21 01/04/21 07:15 History Losartan [Cozaar] 25 mg PO DAILY 10/06/13 01/03/21 01/04/21 07:15 History hydroCHLOROthiazide [HCTZ] 12.5 mg PO DAILY 10/06/13 01/03/21 01/04/21 07:15 History Ibuprofen [Motrin 800 MG tab] 800 mg PO Q8HR PRN 01/03/21 01/03/21 12/30/20 History oxyCODONE /ACETAMINOPHEN [Percocet 1 tab PO Q6HR PRN #10 tablet 01/04/21 Unknown Rx 5/325 mg] cephALEXin [Keflex] 500 mg PO Q8HR #21 cap 03/22/21 Unknown Rx ED Physical Exam - General Limitations: No Limitations General appearance: alert, in no apparent distress - Head Head exam: Present: atraumatic, normocephalic, normal inspection - Eye Eye exam: Present: normal appearance, PERRL, EOMI Pupils: Present: normal accommodation - ENT ENT exam: Present: normal exam - Neck Neck exam: Present: normal inspection, full ROM - Respiratory Respiratory exam: Present: normal lung sounds bilaterally. Absent: respiratory distress, wheezes, rales - Cardiovascular Cardiovascular Exam: Present: regular rate, normal rhythm - Extremities Exam Extremities exam: Present: full ROM, normal capillary refill, other (There is ~6cm x 7cm indurated, mildly fluctuant bruised area noted to volar forearm with moderate amt of bruising noted to volar medial aspect of forearm. There is mild swelling to forearm. No erythema, warmth or lymphangitis) - Expanded Upper Extremity Exam Right Neurosensory exam: Present: radial nerve intact, ulnar nerve intact, median nerve intact Vascular: Present: normal capillary refill. 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 Patient was put on antibiotics by physician and bite begin to clear up but now it has increased in size COMPARISON: None available. FINDINGS: BONES / JOINT(S): No acute fracture or subluxation. No significant arthritis. SOFT TISSUES: There is swelling of the medial and volar soft tissues of the forearm. ADDITIONAL FINDINGS: None. Signer Name: Austin Harkins MD Signed: 03/22/2021 9:40 PM Workstation Name: [id number] Transcribed By: DB Dictated By: AUSTIN HARKINS MD Electronically Authenticated By: AUSTIN HARKINS MD Signed Date/Time: 03/22/212139 DD/ 38 TD/TT: - Medical Decision Making 1039pm: Xray shows swelling medial and volar forearm otherwise unremarkable. Patient was seen and evaluated together with Dr Ibrahim, suspect more of hematoma with bruising than abscess/cellulitis. No evidence of compartment syndrome on exam. She recommended doing needle aspiration. Needle aspiration was done by me and only blood was drained. No pus noted. Pt tolerated procedure well without complications. Pressure dressing applied. Patient will be given rx for keflex as preventative s/p aspiration and her immunocompromise state. Patient is not toxic, she denies any significant distress and she is neurologically intact. S he is afebrile here in ER today. No further work-up needed at this time. Discussed the suspected diagnosis and treatment plan with patient. Recommend close follow-up with her primary care doctor. She expressed understanding of all instructions and agree with plan. Patient stable at time of discharge. Critical care attestation.: If time is entered above; I have spent that time in minutes in the direct care of this critically ill patient, excluding procedure time. ED Disposition Clinical Impression: Traumatic hematoma of forearm, Contusion, forearm Disposition: 01 HOME / SELF CARE / HOMELESS Is pt being admited?: No Does the pt Need Aspirin: No Condition: Stable Instructions: Contusion, [id number] Additional Instructions: I recommend that you elevate your arm as much to help with swelling. You can take motrin for pain and apply ice to help with swelling. Take the keflex as prescribed. I recommend no more manipulating of area and keep it clean with soap and water, no peroxide or alcohol. Follow up closely with PCP. Return to ED if worse. Prescriptions: cephALEXin [Keflex] 500 mg PO Q8HR #21 cap Referrals: OLIVIA SEGURA MD [Primary Care Provider] - 3-5 Days Time of Disposition: 22:47
--- NOTE | 2021-03-22 21:44 | XRay Report ---
RIGHT FOREARM 2 VIEW(S) INDICATION / CLINICAL INFORMATION: Forearm swelling/bruising.....presents with insect bite to right f orearm x 6 days. Patient was put on antibiotics by physician and bite begin to clear up but now it berger s increased in size COMPARISON: None available. FINDINGS: BONES / JOINT(S): No acute fracture or subluxation. No significant arthritis. SOFT TISSUES: There is swelling of the medial and volar soft tissues of the forearm. ADDITIONAL FINDINGS: None. Signer Name: Austin Harkins MD Signed: 03/22/2021 9:40 PM Workstation Name: [id number]
== END 2021-03-22 22:56 | disposition home or self-care (01) ==
LOC: ED 19:02
DX: S50.11XA Contusion of right forearm, initial encounter (principal); I10 Essential (primary) hypertension; G43.909 Migraine, unspecified, not intractable, without status migrainosus; M16.12 Unilateral primary osteoarthritis, left hip; E03.9 Hypothyroidism, unspecified; H40.9 Unspecified glaucoma; Z85.9 Personal history of malignant neoplasm, unspecified; Z87.891 Personal history of nicotine dependence; Z88.5 Allergy status to narcotic agent; Z88.6 Allergy status to analgesic agent; X58.XXXA Exposure to other specified factors, initial encounter; Y93.89 Activity, other specified; Y92.89 Other specified places as the place of occurrence of the external cause; Y99.8 Other external cause status
CPT/HCPCS: 99283

== ENCOUNTER 2021-06-14 07:36 | Outpatient (CLI) | payer MEDICAID ==
[2021-06-14 09:28] LABS: Blood Urea Nitrogen 11 mg/dL (7-17)
--- NOTE | 2021-06-14 10:29 | Cat Scan Report ---
CT chest, abdomen, and pelvis with contrast INDICATION : History of breast cancer, status post resection. TECHNIQUE: 100 mL of intravenous contrast administered. All CT scans at this location are performed using CT dose reduction for ALARA by means of automated exposure control. The lack of oral contrast limits evaluation of the gastrointestinal tract. COMPARISON: 09/02/2020, 08/18/2020. FINDINGS: CHEST: Postsurgical changes following right upper outer breast lumpectomy. No abnormal axillary or mediastin al lymph nodes. There is a new 1.4 x 0.6 cm density within the posterior left lower lobe (axial image 81 of 112). Heart is within normal limits in terms of size. No evidence of pericardial effusion. Left chest Port- A-Cath is noted. There is a 7 x 7 mm partially defined lucent lesion within the right aspect of T3 vertebral body (axi al image 14). ABDOMEN/PELVIS: There is a new 1.3 x 0.9 cm partially defined density within the superior posterior aspect of the spl een. A few round renal hypodensities are most consistent with cysts. The liver, gallbladder, and adrenal g lands are unremarkable. Stable atrophic appearance of the pancreas. No focal bowel wall thickening. No distended loops of intestines. The appendix is normal in appearance. The urinary bladder is poorly visualized due to metallic artifa ct from left total hip arthroplasty. No pathologically enlarged lymph nodes within the abdomen and pe lvis. Scattered atherosclerotic calcifications throughout the abdominal aorta and its major branch vessels with marked narrowing of the proximal SMA due to suspected noncalcified and calcified plaque. This is estimated at 70% stenosis. No evidence of acute osseous injury or aggressive osseous destructive lesion within the abdomen and p kamila. IMPRESSION: Expected postsurgical changes in the right upper outer breast following lumpectomy. There is a 7 mm lytic lesion within the right aspect of T3 vertebral body. This is indeterminant and the presence of a solitary metastatic lesion cannot be excluded. New 1.4 x 0.6 cm partially defined density within the posterior left lung base. This is indeterminate , but its relatively ill-defined appearance would suggest an infectious or inflammatory etiology and less likely an area of pulmonary metastatic disease. Attention to this finding on subsequent exams is recommended. Indeterminate 1.3 x 0.9 cm hypodensity within the posterior superior aspect of the spleen. This was n ot definitely present on the prior PET/CT, although the prior PET CT was performed without intravenou s contrast which limits direct comparison. Scattered osseous sclerotic calcifications throughout the abdominal aorta and its major branch vessel s with marked narrowing of the proximal SMA due to suspected noncalcified and calcified plaque. Degre e of stenosis is estimated at 70%. Signer Name: Jadiel Waters MD Signed: 06/14/2021 10:24 AM Workstation Name: [id number]
== END 2021-06-14 07:37 | disposition home or self-care (01) ==
LOC: CT 07:36
PROVIDERS: ATTEND Internal Medicine Hematology
DX: C50.411 Malignant neoplasm of upper-outer quadrant of right female breast (principal); R22.31 Localized swelling, mass and lump, right upper limb; I10 Essential (primary) hypertension; G89.29 Other chronic pain; F43.0 Acute stress reaction; D70.9 Neutropenia, unspecified; E03.9 Hypothyroidism, unspecified; E86.0 Dehydration; L30.9 Dermatitis, unspecified; K21.9 Gastro-esophageal reflux disease without esophagitis; J22 Unspecified acute lower respiratory infection; R60.1 Generalized edema; L02.224 Furuncle of groin; I70.0 Atherosclerosis of aorta; Z41.8 Encounter for other procedures for purposes other than remedying health state; Z90.12 Acquired absence of left breast and nipple
CPT/HCPCS: 36415; 71260; 74177; 82565; 84520; Q9967

== ENCOUNTER 2021-09-05 11:13 | Outpatient (CLI) | payer MEDICAID ==
[2021-09-05 13:26] LABS: Blood Urea Nitrogen 14 mg/dL (7-17)
--- NOTE | 2021-09-05 15:48 | Cat Scan Report ---
CT CHEST, ABDOMEN, AND PELVIS WITH CONTRAST INDICATION / CLINICAL INFORMATION: C50.411 LUNG NODULE OMNI 300 100 ML. History of breast cancer TECHNIQUE: Axial CT images were obtained through the chest, abdomen, and pelvis after 100 cc of Omnip aque [address] scans at this location are performed using CT dose reduction for ALARA b y means of automated exposure control. COMPARISON: 06/14/2021 FINDINGS: HEART: No significant abnormality. CORONARY ARTERY CALCIFICATION: Present -- Mild. THORACIC AORTA: Mild atherosclerotic calcification without acute abnormality. MEDIASTINUM / FREDERIC: No significant abnormality. PLEURA: No pleural effusion. No pneumothorax. LUNGS: There is been interval resolution of the parenchymal opacity in the left lower lobe. No pulmon jeannine nodules or masses are seen. ADDITIONAL CHEST FINDINGS: None. LIVER: No significant abnormality. GALLBLADDER: No significant abnormality. BILE DUCTS: No significant abnormality. PANCREAS: No significant abnormality. SPLEEN: There is a stable hypodensity in spleen. This measures water density and is likely a cyst. ADRENALS: No significant abnormality. RIGHT KIDNEY / URETER: There is a stable cyst. LEFT KIDNEY / URETER: No significant abnormality. STOMACH and SMALL BOWEL: No significant abnormality. COLON: There is moderate to large amount stool in the colon raising possibility of constipation. APPENDIX: No significant abnormality. PERITONEUM: No free fluid. No free air. No fluid collection. LYMPH NODES: No significant adenopathy. AORTA / ARTERIES: Moderate atherosclerotic calcification without acute abnormality. IVC / VEINS: No significant abnormality. URINARY BLADDER: No significant abnormality. REPRODUCTIVE ORGANS: No significant abnormality. ADDITIONAL FINDINGS: None. SKELETAL SYSTEM: There is an area in the T3 vertebral body is stable. IMPRESSION: 1. Density in the left lower lobe the lung noted on the prior study has resolved in the interval. 2. Lytic appearing area in the T3 vertebral body is stable. 3. Hypodensity in the superior spleen is unchanged. This measures water density and is likely a cyst. 4. Atherosclerotic disease appears unchanged. Signer Name: Petar Quach MD Signed: 09/05/2021 3:43 PM Workstation Name: [id number]
== END 2021-09-05 11:14 | disposition home or self-care (01) ==
LOC: CT 11:13
PROVIDERS: ATTEND Internal Medicine Hematology
DX: C50.411 Malignant neoplasm of upper-outer quadrant of right female breast (principal); G89.29 Other chronic pain; I10 Essential (primary) hypertension; I25.10 Atherosclerotic heart disease of native coronary artery without angina pectoris; I70.0 Atherosclerosis of aorta; R19.5 Other fecal abnormalities; D73.89 Other diseases of spleen
CPT/HCPCS: 36415; 71260; 74177; 82565; 84520; Q9967

== ENCOUNTER 2021-11-01 09:34 | Outpatient (CLI) | payer MEDICAID ==
--- NOTE | 2021-11-01 14:42 | Nuclear Medicine Report ---
NUCLEAR MEDICINE BONE SCAN, WHOLE BODY INDICATION: C50.41. Breast cancer follow-up TECHNIQUE: 25.4 mCi of Tc-99m MDP were injected IV. Whole body images were obtained. COMPARISON: CT [facility] scan from 09/05/2021. FINDINGS: Skeletal Structures/Lesions: There is degenerative uptake in the spine, shoulders, knees, and feet. T here is also some contamination along the left forearm IV line area. Otherwise, there is faint uptake in the proximal left femur, involving one of the right anterolateral mid ribs and involving the lowe r lumbar spine. Soft Tissues: Normal. Kidneys: Normal, symmetric activity. Additional Findings: None. IMPRESSION: 1. Radiotracer uptake in the spine and right ribs is worrisome for metastatic disease. On the compari son CT roughly 2 months ago, there was no clear bone lesion in these regions. Recommend follow-up rad iographic or cross-sectional imaging in these areas for further evaluation. Signer Name: Manny Partida MD Signed: 11/01/2021 2:37 PM Workstation Name: [id number]
== END 2021-11-01 09:35 | disposition home or self-care (01) ==
LOC: NM 09:34
PROVIDERS: ATTEND Internal Medicine Hematology
DX: C50.411 Malignant neoplasm of upper-outer quadrant of right female breast (principal); K21.9 Gastro-esophageal reflux disease without esophagitis; F17.200 Nicotine dependence, unspecified, uncomplicated
CPT/HCPCS: 78306; A9503

== ENCOUNTER 2021-11-16 00:17 | Emergency (ER) | payer MEDICAID ==
--- NOTE | 2021-11-16 02:00 | Emergency Department Report ---
ED Upper Extremity Inj HPI - General Chief Complaint: Extremity Injury, Upper Stated Complaint: RIGHT HAND RING FINGER SWOLLEN Source: patient Mode of arrival: Ambulatory Limitations: No Limitations - History of Present Illness MD Complaint: Injury to:: right (rings stuck on right ring finger), finger (right ring finger) -: Sudden, days(s) (4) Other Extremity Injury: Fingers: Right (right ring fingers, pain andswelling) Other Injuries: none Handedness: right Place: home Severity scale (0 -10): 7 Improves With: none Worsens With: movement of extremity Context: other (rights stuck in right ring fingers) Associated Symptoms: denies other symptoms. denies: weakness, numbness, suspects foreign body, nausea/vomiting - Related Data Home Medications Medication Instructions Recorded Confirmed Last Taken Levothyroxine [Synthroid] 100 mcg PO DAILY 10/06/13 01/03/21 01/04/21 07:15 Losartan [Cozaar] 25 mg PO DAILY 10/06/13 01/03/21 01/04/21 07:15 hydroCHLOROthiazide [HCTZ] 12.5 mg PO DAILY 10/06/13 01/03/21 01/04/21 07:15 Ibuprofen [Motrin 800 MG tab] 800 mg PO Q8HR PRN 01/03/21 01/03/21 12/30/20 Previous Rx's Medication Instructions Recorded Last Taken Type oxyCODONE /ACETAMINOPHEN [Percocet 1 tab PO Q6HR PRN #10 tablet 01/04/21 Unknown Rx 5/325 mg] cephALEXin [Keflex] 500 mg PO Q8HR #21 cap 03/22/21 Unknown Rx Acetaminophen [Tylenol] 500 mg PO Q6HR PRN #30 tablet 11/16/21 Unknown Rx cephALEXin [Keflex] 500 mg PO Q6HR #30 capsule 11/16/21 Unknown Rx Allergies Allergy/AdvReac Type Severity Reaction Status Date / Time ketorolac tromethamine AdvReac Itching Verified 03/22/21 20:19 [From Toradol] tramadol AdvReac Itching Verified 03/22/21 20:19 ED Review of Systems ROS: Stated complaint: RIGHT HAND RING FINGER SWOLLEN Other details as noted in HPI Constitutional: denies: chills, fever Eyes: denies: eye pain, eye discharge, vision change ENT: denies: ear pain, throat pain Respiratory: denies: cough, shortness of breath, wheezing Cardiovascular: denies: chest pain, palpitations Endocrine: no symptoms reported Gastrointestinal: denies: abdominal pain, nausea, vomiting, diarrhea Genitourinary: denies: urgency, dysuria, frequency, hematuria, discharge, abnormal menses, dyspareunia Musculoskeletal: denies: back pain, joint swelling, arthralgia Skin: denies: rash, lesions Neurological: denies: headache, weakness, paresthesias Psychiatric: denies: anxiety, depression Hematological/Lymphatic: denies: easy bleeding, easy bruising ED Past Medical Hx - Past Medical History Hx Hypertension: Yes Hx Heart Attack/AMI: No Hx Liver Disease: No Hx Renal Disease: No Hx Sickle Cell Disease: No Hx Arthritis: Yes (LEFT HIP) Hx Headaches / Migraines: Yes (Migraines) Additional medical history: hypothyroid,BILATERAL GLAUCOMA - Social History Smoking Status: Former Smoker - Medications Home Medications: Home Medications Medication Instructions Recorded Confirmed Last Taken Type Levothyroxine [Synthroid] 100 mcg PO DAILY 10/06/13 01/03/21 01/04/21 07:15 History Losartan [Cozaar] 25 mg PO DAILY 10/06/13 01/03/21 01/04/21 07:15 History hydroCHLOROthiazide [HCTZ] 12.5 mg PO DAILY 10/06/13 01/03/21 01/04/21 07:15 History Ibuprofen [Motrin 800 MG tab] 800 mg PO Q8HR PRN 01/03/21 01/03/21 12/30/20 History oxyCODONE /ACETAMINOPHEN [Percocet 1 tab PO Q6HR PRN #10 tablet 01/04/21 Unknown Rx 5/325 mg] cephALEXin [Keflex] 500 mg PO Q8HR #21 cap 03/22/21 Unknown Rx Acetaminophen [Tylenol] 500 mg PO Q6HR PRN #30 tablet 11/16/21 Unknown Rx cephALEXin [Keflex] 500 mg PO Q6HR #30 capsule 11/16/21 Unknown Rx ED Physical Exam - General Limitations: No Limitations General appearance: alert, in no apparent distress - Head Head exam: Present: atraumatic, normocephalic, normal inspection - Eye Eye exam: Present: normal appearance, PERRL, EOMI Pupils: Present: normal accommodation - ENT ENT exam: Present: normal exam, normal orophraynx, mucous membranes moist, TM's normal bilaterally, normal external ear exam - Neck Neck exam: Present: normal inspection, full ROM - Respiratory Respiratory exam: Present: normal lung sounds bilaterally. Absent: respiratory distress, wheezes, rales, rhonchi, chest wall tenderness, accessory muscle use, decreased breath sounds, prolonged expiratory - Cardiovascular Cardiovascular Exam: Present: regular rate, normal rhythm, normal heart sounds. Absent: systolic murmur, diastolic murmur, rubs, gallop - GI/Abdominal GI/Abdominal exam: Present: soft, normal bowel sounds. Absent: tenderness, guarding, rebound, hyperactive bowel sounds, hypoactive bowel sounds, organomegaly - Extremities Exam Extremities exam: Present: normal inspection, full ROM, tenderness (Palpable right ring finger tenderness with swelling and multiple rings stuck, neurovascularly intact), normal capillary refill, joint swelling (Right ring finger swelling). Absent: pedal edema, calf tenderness - Back Exam Back exam: Present: normal inspection, full ROM. Absent: tenderness, CVA tenderness (R), CVA tenderness (L), muscle spasm, paraspinal tenderness, vertebral tenderness - Neurological Exam Neurological exam: Present: alert, oriented X3, CN II-XII intact, normal gait, reflexes normal - Psychiatric Psychiatric exam: Present: normal affect, normal mood - Skin Skin exam: Present: warm, dry, intact, normal color. Absent: rash ED Course Vital Signs 11/16/21 00:24 Temperature 98.0 F Pulse Rate 72 Respiratory 18 Rate Blood Pressure 156/70 O2 Sat by Pulse 100 Oximetry Critical care attestation.: If time is entered above; I have spent that time in minutes in the direct care of this critically ill patient, excluding procedure time. ED Disposition Clinical Impression: Abrasion of right ring finger, initial encounter, Ring avulsion injury of finger of right hand Complicated ring avulsion injury of finger Qualifiers: Encounter type: initial encounter Laterality: right Qualified Code(s): S61.209A - Unspecified open wound of unspecified finger without damage to nail, initial encounter Disposition: HOME / SELF CARE / HOMELESS Is pt being admited?: No Does the pt Need Aspirin: No Condition: Stable Instructions: Skin Tear, [id number], Abrasion, [id number] Additional Instructions: Take medication as needed for pain, drink plenty of fluids, follow-up with your primary care physician in 7 to 10 days for reevaluation. Return to the ED immediately if symptoms get worse. Prescriptions: Acetaminophen [Tylenol] 500 mg PO Q6HR PRN #30 tablet PRN Reason: Pain , Severe (7-10) cephALEXin [Keflex] 500 mg PO Q6HR #30 capsule Referrals: [facility] [Provider Group] - 3-5 Days Forms: Work/School Release Form(ED) Time of Disposition: 02:00 Print Language: MALTESE
[2021-11-16 06:03] VITALS: BP 149/67
== END 2021-11-16 02:16 | disposition home or self-care (01) ==
LOC: ED 00:17
DX: S60.414A Abrasion of right ring finger, initial encounter (principal); S61.209A Unspecified open wound of unspecified finger without damage to nail, initial encounter; X58.XXXA Exposure to other specified factors, initial encounter; Y93.89 Activity, other specified; Y92.89 Other specified places as the place of occurrence of the external cause; Y99.8 Other external cause status
CPT/HCPCS: 99282

== ENCOUNTER 2022-01-05 08:35 | Outpatient (CLI) | payer MEDICAID ==
--- NOTE | 2022-01-05 11:44 | PET Report ---
PET-CT SCAN INDICATION / CLINICAL INFORMATION: C50.411 I10 G89.29. STAGING: Re-staging TECHNIQUE: Tumor imaging, positron emission tomography (PET) with concurrently acquired computed tomography (CT) for attenuation correction and anatomical localization; Skull Base to Mid Thigh - DOSE: 13.7 mCi F-18 FDG was administered IV per protocol in the left forearm - GLUCOSE: Patient's blood glucose at that time was (mg/dL): 79 - UPTAKE TIME: PET scan performed approximately 60 minutes after radiotracer administration. - CT SCAN DESCRIPTION: No oral or IV contrast. All CT scans at this location are performed using CT d ose reduction for ALARA by means of automated exposure control. COMPARISON: Prior CT from 09/05/2021. Prior nuclear medicine bone scan from 11/01/2021. Prior PET/CT from 09/02/2020 . FINDINGS: HEAD / NECK: No abnormal radiotracer uptake in the neck. No significant CT abnormality. CHEST: Postsurgical changes related to right upper outer breast lumpectomy. There is mild asymmetric skin thickening and stranding in the retroareolar region of the right breast with low-level uptake me asuring 3.0 in max SUV. This is favored to be related to prior treatment. 1.3 cm subpleural nodular d ensity in the right middle lobe is new from prior CT from 09/05/2021, though demonstrates no associate d abnormal FDG uptake (SUV max measures 1.2). This is likely related to scarring from prior therapy. Left chest wall port catheter tip terminates in the right atrium/cavoatrial junction. ABDOMEN / PELVIS: No abnormal radiotracer uptake in the abdomen. Small splenic cyst without abnormal uptake. No new CT abnormality. LOWER EXTREMITIES: No abnormal radiotracer uptake in the visualized lower extremities. No significant CT abnormality. SKELETAL STRUCTURES: No abnormal metabolic activity associated with lucent lesion involving the right aspect of T3. There are subtle healing fractures of the right anterolateral sixth and seventh rib. L ow-level uptake measures 2.7 in max SUV associated with the seventh rib. This likely corresponds with abnormal uptake seen on prior bone scan from 11/01/2021. No abnormal osseous lesion in this location. There is uptake in the region of the L4-L5 facet joints measuring 4.5 in max SUV. There is moderate- marked facet arthropathy at this level, likely accounting for uptake. Again, there is no aggressive o sseous lesion in this location. No aggressive osseous lesions identified. No metabolic bone lesions. Left hip arthroplasty is intact. ADDITIONAL FINDINGS: No additional significant findings. IMPRESSION: 1. No definitive findings of recurrent or metastatic disease identified. 2. Postsurgical changes related to right upper outer breast lumpectomy. Mild low-level uptake associa michelle with asymmetric stranding and mild skin thickening of the right breast. This is favored to be rel ated to radiation therapy. 3. No hypermetabolic bone lesion. Healing right anterolateral sixth and seventh rib fractures and mod erate-marked facet arthropathy at L4-L5 likely accounts for abnormal uptake in these locations on scarlett or bone scan. There is no abnormal uptake within the lucent lesion of L3. 4. Nonhypermetabolic subpleural nodular density in the right middle lobe likely reflects sequela of r adiation therapy. Signer Name: James Lujan MD Signed: 01/05/2022 11:40 AM Workstation Name: [id number]
== END 2022-01-05 08:36 | disposition home or self-care (01) ==
LOC: PET 08:35
PROVIDERS: ATTEND Internal Medicine Hematology & Oncology
DX: C50.411 Malignant neoplasm of upper-outer quadrant of right female breast (principal); I10 Essential (primary) hypertension; G89.29 Other chronic pain; F43.0 Acute stress reaction; D70.9 Neutropenia, unspecified; E03.9 Hypothyroidism, unspecified; E86.0 Dehydration; L30.9 Dermatitis, unspecified; K21.9 Gastro-esophageal reflux disease without esophagitis; J22 Unspecified acute lower respiratory infection; R22.31 Localized swelling, mass and lump, right upper limb; L02.224 Furuncle of groin; F41.9 Anxiety disorder, unspecified; Z41.8 Encounter for other procedures for purposes other than remedying health state
CPT/HCPCS: 78815; 82962; A9552